=== PATIENT | male | born 1965 | race Caucasian/White ===

== ENCOUNTER 2024-07-15 05:40 | Emergency (ER) | payer BC, SELFPAY ==
[2024-07-15 05:44] VITALS: BP 124/90
[2024-07-15 06:01] LABS: % Basophils 0.5 % (0-2); % Eosinophils 0.4 % (0-6); % Immature Granulocytes 0.5 % (0-0.5); % Lymphocytes 15.9 % (20.5-51.1); % Neutrophils 74.7 % (42.2-75.2); Absolute Lymphocytes 1.2 10^3/uL (1.2-3.4); Absolute Monocytes 0.6 10^3/uL (0.1-0.6); Absolute Neutrophils 5.5 10^3/uL (1.4-6.5); Hematocrit 50.2 % (39.0-52.0); Hemoglobin 17.2 g/dL (13.0-18.0); Mean Corp Hgb Conc. 34.3 g/dL (33.0-37.0); Mean Corpuscular Hgb 30.3 pg (27.0-31.0); Mean Corpuscular Volume 88.4 fL (80.0-94.0); Mean Platelet Volume 8.5 fL (7.4-10.4); Nucleated Red Blood Cells % 0 % (-); Platelet Count 152 10^3/uL (130-400); Red Blood Cell Count 5.68 10^6/uL (4.70-6.10); Red Cell Dist. Width 12.7 % (11.5-14.5); White Blood Cell Count 7.4 10^3/uL (4.8-10.8)
[2024-07-15 06:24] LABS: ALT (SGPT) 25 U/L (0-50); AST (SGOT) 25 U/L (17-59); Albumin 4.1 g/dl (3.5-5.0); Alkaline Phosphatase 67 U/L (38-126); Blood Urea Nitrogen 16 mg/dl (9-20); Carbon Dioxide 31 mmol/L (22-30); Chloride 100 mmol/L (98-107); Glucose 130 mg/dl (70-99); Potassium 4.7 mmol/L (3.5-5.1); Sodium 137 mmol/L (135-145); Total Bilirubin 0.9 mg/dl (0.2-1.3); Total Protein 6.7 g/dl (6.3-8.2); eGFR > 60.00
[2024-07-15 08:00] VITALS: BMI 22.5
[2024-07-15 08:02] VITALS: BP 116/82
--- NOTE | 2024-07-15 08:24 | ED.GENMED ---
History of Present Illness
General
Chief Complaint: Fever
Time Seen by Provider: 07/15/24 07:59
History of Present Illness
History of Present Illness:
59-year-old male with no significant past medical history presents the emergency department for eval ration of fever, cough, palpitations. States he has had cold-like symptoms for the past 5 days but awoke early this morning with heart palpitations
and sweating, noted a fever at home of 100.7 which is the highest temperature he has had in this illness. Reports a cough productive of yellow-green sputum. No chest pain or shortness of breath. The palpitations have since resolved. Prior
tobacco user, quit 1 year ago
Review of Systems
Review of Systems
Allergies reviewed?: Yes
All Other Systems: ROS reviewed and negative except as documented in HPI and ROS
Phy Exam
Physical Exam
Physical Exam:
GEN: Well appearing, NAD, WDWN
HEENT: Oral mucosa moist, no scleral icterus
Cardiac: Regular rate And rhythm, no murmurs
Lung: No respiratory distress, no tachypnea, Faint right lower lobe rhonchi otherwise clear lungs
MSK: No gross deformity or injuries
Skin: Good color, no pallor or jaundice, no rashes
Neuro: AO x3, moves all extremities freely
Psych: Calm, cooperative
Course
Orders/Labs/Results
Orders:
Orders
07/15/24 05:47
Electrocardiogram (*1) Urgent
Reason for Study: Palpitations
07/15/24 05:48
EKG- Treatment ONCE
07/15/24 05:54
Complete Blood Count/With Diff Urgent
Comprehensive Metabolic Panel Urgent
07/15/24 08:16
COVID-19 Antigen Urgent
Source: Nasal Swab
Influenza A+B Rapid Molecular Urgent
PASHA Source: Nasal Swab
Specimen Description:
07/15/24 08:24
CR Chest - 2 Views Urgent
Comment:
Reason For Exam: cough, fever
Abnormal Lab Results
07/15/24
05:54
Lymphocytes % 15.9 L %
(20.5-51.1)
Carbon Dioxide 31 H mmol/L
(22-30)
Glucose 130 H mg/dl
(70-99)
07/15/24 05:54
07/15/24 05:54
Vital Signs
Initial and Last Documented VS:
Initial Vital Signs
Temp Pulse Resp BP Pulse Ox
98.2 F 98 22 124/90 97
07/15/24 05:44 07/15/24 05:44 07/15/24 05:44 07/15/24 05:44 07/15/24 05:44
Last Documented Vital Signs
Temp Pulse Resp BP Pulse Ox
98.2 F 77 19 116/82 95
07/15/24 05:44 07/15/24 08:45 07/15/24 08:45 07/15/24 08:02 07/15/24 09:06
MDM/Problems Addressed
MDM/Problems Addressed:
Patient appears clinically stable, no evidence of cardiac dysrhythmia on telemetry monitoring. Although chest x-ray by my interpretation is clear, he does have right lower lobe focal rhonchi by auscultation, given worsening of symptoms secondarily
we will treat as community-acquired pneumonia, given prior history of tobacco abuse we will treat with dual coverage antibiotics
*Critical Care Note
Total Time (30-74mins, 75-104mins- exclusive of procedures): Not Applicable
ED Attending Note
-
Portions of this chart may have been created with voice recognition software.� Occasional wrong word or��sound alike� substitutions may have occurred due to the inherent limitations of voice recognition software.
Discharge Plan
Departure
Patient Disposition: Home (Routine Discharge)
Date of Disposition: 07/15/24
Time of Disposition: 09:21
Patient with high blood pressure during this ER visit?: No
Discharge Problem:
Community acquired pneumonia
Instructions: Pneumonia in adults - ED discharge instructions
Prescriptions:
New
amoxicillin 500 mg capsule
2,000 mg PO BID 5 Days Qty: 40 0RF
doxycycline hyclate 100 mg capsule
100 mg PO BID 5 Days Qty: 10 0RF
Referrals:
Liborio Holman MD [Family Provider] -
Interventions
Interventions:
*Risk Screen - Suicide Last Done: 07/15/24 05:44
*General Assessment Last Done: 07/15/24 08:00
*Neglect/Abuse Screening Last Done: 07/15/24 05:44
*ED- Fall Risk Assessment Last Done: 07/15/24 08:00
*ED COVID-19 Vaccine History Last Done: 07/15/24 08:00
*Nursing Disposition Last Done: 07/15/24 09:32
ED- Neurological Assessment Last Done: 07/15/24 08:00
ED-Skin Assessment Last Done: 07/15/24 08:00
Discharge Date and Time
Discharge Date/Time: 07/15/24 09:33
Print Language: GEORGIAN
[2024-07-15 08:39] LABS: COVID-19 Antigen Negative (Negative)
== END 2024-07-15 09:33 | disposition home or self-care (01) ==
LOC: EMR 05:40
PROVIDERS: Emergency Medicine; EMERGENCY PHYSICIAN Emergency Medicine; FAMILY PHYSICIAN Family Medicine
DX: J18.9 Pneumonia, unspecified organism (principal); Z87.01 Personal history of pneumonia (recurrent)
CPT/HCPCS: 99283; 71046; 80053; 85025; 87502; 87811; 93005